=== PATIENT | male | born 2000 | race Caucasian/White ===

== ENCOUNTER 2023-06-28 16:29 | Emergency (ER) | payer SELFPAY ==
[2023-06-28 16:52] VITALS: BP 119/70; PULSE 75; RESP 18; TEMP 97.3; BMI 21.7
[2023-06-28] MEDS ORDERED: ACETAMINOPHEN 500 MG TABLET (FP) PO ONE (19:20)
[2023-06-28] MEDS ORDERED: ACETAMINOPHEN 500 MG TABLET (FP) ONE (19:59)
== END 2023-06-28 21:20 | disposition home or self-care (01) ==
LOC: JER 16:29 → JERFT 16:29 → JER 21:20
DX: R51.9 Headache, unspecified (principal); B02.9 Zoster without complications; U07.1 COVID-19
CPT/HCPCS: 0241U-QW; 99283-25